=== PATIENT | female | born 1960 | race African-American/Black ===

== ENCOUNTER → 2016-10-13 | Outpatient (CLI) | payer MEDICARE, MEDICAID ==
[~2016-10-13] MED LIST: ASPI-1158 PO; ATOR20TA PO; CINA60 PO; SEVE800T PO; WARF7.5T22 PO
== END | disposition home or self-care (01) ==
LOC: MAMMO 11:11
PROVIDERS: ATTEND Specialist
DX: Z12.31 Encounter for screening mammogram for malignant neoplasm of breast (principal)
CPT/HCPCS: G0202

== ENCOUNTER 2018-01-02 08:17 | Emergency (ER) | payer MEDICARE, MEDICAID ==
[~2018-01-02] VITALS: Ht 177.8 cm; Wt 136.0 kg
[~2018-01-02 08:17] MED LIST changes: +REN800 PO; -SEVE800T PO
[2018-01-02] MEDS ORDERED: ONDANSETRON HCL 4MG/2ML INJ IV STA (10:29)
[2018-01-02] MEDS ORDERED: MAGNESIUM/ALUMINUM HYDROXIDE/SIMETHICONE 30ML UDC PO STA (10:29)
[2018-01-02] MEDS ORDERED: MORPHINE SULFATE 4 MG/ML CPJ (NOT FOR IM USE) IV STA (10:29)
[2018-01-02] MEDS ORDERED: FAMOTIDINE 20MG/2ML VIAL IV STA (10:29)
[2018-01-02 11:51] LABS: BASOPHILS % 0.8 % (0.0-2.0); EOSINOPHILS % 2.3 % (0.0-5.0); HEMATOCRIT. 34.8 % (36.0-48.0); HEMOGLOBIN. 11.6 g/dL (12.0-16.0); MEAN CORPUSCULAR HEMOGLOBIN 29.5 pg (28.0-32.0); MEAN CORPUSCULAR VOLUME 88.7 fL (81.0-99.0); MEAN PLATELET VOLUME 8.4 fl (7.4-10.4); MONOCYTES % 7.1 % (2.0-8.0); NEUTROPHILS % 69.8 % (40.0-76.0); PLATELET 205 x1000/uL (130-400); RED BLOOD CELL COUNT 3.92 mill/uL (4.2-5.4); RED CELL DISTRIBUTION WIDTH 15.2 % (11.6-14.6)
[2018-01-02 11:55] LABS: CHLORIDE 97 mEq/L (98-107)
[2018-01-02 12:00] LABS: ETHANOL BLOOD < 10 mg/dL
[2018-01-02 13:50] VITALS: BP 109/71
== END 2018-01-02 13:50 | disposition home or self-care (01) ==
LOC: ER 08:17 → EDBEDREQ 10:38 → CANBEDREQ 13:29 → ER 13:50
DX: N20.0 Calculus of kidney (principal); K57.30 Diverticulosis of large intestine without perforation or abscess without bleeding; Q61.3 Polycystic kidney, unspecified; E11.22 Type 2 diabetes mellitus with diabetic chronic kidney disease; N18.6 End stage renal disease; Z99.2 Dependence on renal dialysis; Z85.9 Personal history of malignant neoplasm, unspecified
CPT/HCPCS: 36415; 71045; 74176; 80053; 83690; 83880; 84484; 85025; 85610; 93005; 96374; 96375; 99285; G0482; J2270; J2405; J3490

== ENCOUNTER → 2018-06-15 | Outpatient (CLI) | payer MEDICARE, MEDICAID | END | disposition home or self-care (01) | LOC: RAD 12:01 | PROVIDERS: ATTEND Internal Medicine Nephrology | DX: Z12.2 Encounter for screening for malignant neoplasm of respiratory organs (principal); I51.7 Cardiomegaly | CPT/HCPCS: 71046 ==

== ENCOUNTER → 2019-02-26 | Day surgery (SDC) | payer MEDICARE, MEDICAID ==
[~2019-02-26] VITALS: Ht 177.8 cm; Wt 139.7 kg
[~2019-02-26] MED LIST changes: +CARV3.1242 MT; +CEFAZOLIN 1000MG PREMIX 100 ML IV ONE; +GENTAMICIN SULF 40MG/ML 2ML VIAL ONE; +GENTAMICIN/NS IRRIGATION 500 ML IR ONE; +GLIP5TAB12 MT; +IODIXANOL 320MG/ML 100 ML BOTTLE IV ONE; +LIDOCAINE HCL 1% 20ML VIAL (Pyxis) INJ ONE; +SACU1TAB PO
[2019-02-26 09:42] LABS: HEMATOCRIT 38.8 % (36.0-48.0); HEMOGLOBIN 12.6 g/dL (12.0-16.0); MEAN CORPUSCULAR HEMOGLOBIN 29.4 pg (28.0-32.0); MEAN CORPUSCULAR VOLUME 90.2 fL (81.0-99.0); PLATELET 154 x1000/uL (130-400); RED CELL DISTRIBUTION WIDTH 16.7 % (11.6-14.6)
[2019-02-26 10:04] LABS: PARTIAL THROMBOPLASTIN TIME 28.1 sec (23.4-31.0); PROTHROMBIN TIME 10.4 sec (9.6-11.0)
== END | disposition home or self-care (01) ==
LOC: CCL 08:28
PROVIDERS: ATTEND Internal Medicine Clinical Cardiac Electrophysiology
DX: I13.2 Hypertensive heart and chronic kidney disease with heart failure and with stage 5 chronic kidney disease, or end stage renal disease (principal); I50.22 Chronic systolic (congestive) heart failure; E11.22 Type 2 diabetes mellitus with diabetic chronic kidney disease; N18.6 End stage renal disease; I42.8 Other cardiomyopathies; Z79.899 Other long term (current) drug therapy; Z79.82 Long term (current) use of aspirin; Z87.891 Personal history of nicotine dependence; Z85.118 Personal history of other malignant neoplasm of bronchus and lung; Z72.89 Other problems related to lifestyle
CPT/HCPCS: 36415; 75820; 80048; 85027; 85610; 85730; 93005; C1769; C1887; C1893; J0330; J0690; J1100; J2250; J2370; J2704; J3010; J3490; Q9967; J1580

== ENCOUNTER → 2019-09-25 | Outpatient (CLI) | payer MEDICARE, MEDICAID ==
[~2019-09-25] MED LIST changes: -ATOR20TA PO; -CEFAZOLIN 1000MG PREMIX 100 ML IV ONE; -GENTAMICIN SULF 40MG/ML 2ML VIAL ONE; -GENTAMICIN/NS IRRIGATION 500 ML IR ONE; -IODIXANOL 320MG/ML 100 ML BOTTLE IV ONE; -LIDOCAINE HCL 1% 20ML VIAL (Pyxis) INJ ONE; +SEVE800T8 PO; -WARF7.5T22 PO
== END | disposition home or self-care (01) ==
LOC: LAB 15:34
PROVIDERS: ATTEND Internal Medicine Clinical Cardiac Electrophysiology
DX: Z03.818 Encounter for observation for suspected exposure to other biological agents ruled out (principal)
CPT/HCPCS: U0003-CS

== ENCOUNTER → 2019-09-27 | Outpatient (CLI) | payer MEDICARE, MEDICAID ==
[~2019-09-27] VITALS: Ht 177.8 cm; Wt 133.8 kg
[~2019-09-27] MED LIST changes: +LIDOCAINE HCL 1% 20ML VIAL (Pyxis) INJ ONE; +SODIUM BICARBONATE 4% (2.4MEQ) 5ML VIAL IV ONE
[2019-09-27 08:21] LABS: HEMATOCRIT 42.9 % (36.0-48.0); HEMOGLOBIN 13.9 g/dL (12.0-16.0); MEAN CORPUSCULAR HEMOGLOBIN 28.5 pg (28.0-32.0); MEAN CORPUSCULAR VOLUME 87.7 fL (81.0-99.0); PLATELET 160 x1000/uL (130-400); RED BLOOD CELL COUNT 4.89 mill/uL (4.2-5.4); RED CELL DISTRIBUTION WIDTH 16.3 % (11.6-14.6)
[2019-09-27 08:29] LABS: PARTIAL THROMBOPLASTIN TIME 28.6 sec (23.4-31.0); PROTHROMBIN TIME 10.9 sec (9.6-11.0)
== END | disposition home or self-care (01) ==
LOC: CCL 06:08 → RAD 07:10 → EDSTATUS 09-28 09:00
PROVIDERS: ATTEND Internal Medicine Clinical Cardiac Electrophysiology
DX: I50.22 Chronic systolic (congestive) heart failure (principal); I44.7 Left bundle-branch block, unspecified; I42.9 Cardiomyopathy, unspecified; Z79.82 Long term (current) use of aspirin; Z79.899 Other long term (current) drug therapy; Z98.890 Other specified postprocedural states; Z87.891 Personal history of nicotine dependence
CPT/HCPCS: 36415; 36573; 80048; 82962; 85027; 85610; 85730; 93005; C1725; C1751; J3490; 76937

== ENCOUNTER 2019-09-28 08:03 | Inpatient (IN) | payer MEDICARE, MEDICAID ==
[~2019-09-28] VITALS: Ht 177.8 cm; Wt 137.0 kg
[2019-09-28] VITALS (8 sets, daily range): BP systolic 83–132; BP diastolic 41–104
[~2019-09-28 08:03] MED LIST changes: -LIDOCAINE HCL 1% 20ML VIAL (Pyxis) INJ ONE; -SACU1TAB PO; -SEVE800T8 PO; -SODIUM BICARBONATE 4% (2.4MEQ) 5ML VIAL IV ONE
[2019-09-28] MEDS ORDERED: LIDOCAINE HCL 1% 20ML VIAL (Pyxis) INJ ONE (09:05)
[2019-09-28] MEDS ORDERED: IOHEXOL-300 100 ML BOTTLE ONE (09:06)
[2019-09-28] MEDS ORDERED: MIDAZOLAM HCL 2 MG/2 ML VIAL ONE (09:09)
[2019-09-28] MEDS ORDERED: PROPOFOL 200MG/20ML VIAL IV ONE ×2 (09:09→12:17)
[2019-09-28] MEDS ORDERED: FENTANYL CITRATE/PF 50MCG/ML 2ML VIAL ONE (09:09)
[2019-09-28] MEDS ORDERED: ONDANSETRON HCL 4MG/2ML INJ ONE (09:37)
[2019-09-28] MEDS ORDERED: GENTAMICIN/NS IRRIGATION 500 ML IR ONE (09:41)
[2019-09-28] MEDS ORDERED: EPHEDRINE SULFATE 50MG/ML VIAL ONE (11:45)
[2019-09-28] MEDS ORDERED: GENTAMICIN SULF 40MG/ML 2ML VIAL ONE (12:21)
[2019-09-28] MEDS ORDERED: FENTANYL CITRATE/PF 50MCG/ML 2ML VIAL IV PRN (13:15)
[2019-09-28] MEDS ORDERED: METOCLOPRAMIDE HCL 10MG/2ML VIAL IV PRN (13:15)
[2019-09-28] MEDS ORDERED: DIPHENHYDRAMINE 50MG/ML VIAL IV PRN (13:15)
[2019-09-28] MEDS: SEVELAMER CARBONATE 800 MG TABLET PO SCH (16:48)
[2019-09-28] MEDS: HYDROCODONE/ACETAMINOPHEN 5/325MG TABLET PO PRN (19:55)
[2019-09-28] MEDS: CARVEDILOL 3.125 MG TABLET PO SCH (21:00)
[2019-09-29 04:00] VITALS: BP 101/45
[2019-09-29 06:00] VITALS: BP 93/61
[2019-09-29 07:22] LABS: BASOPHILS % 0.6 % (0.0-2.0); EOSINOPHILS % 3.8 % (0.0-5.0); HEMATOCRIT. 42.3 % (36.0-48.0); HEMOGLOBIN. 13.7 g/dL (12.0-16.0); LYMPHOCYTES % 19.4 % (20.0-50.0); MEAN CORPUSCULAR HEMOGLOBIN 28.7 pg (28.0-32.0); MEAN CORPUSCULAR VOLUME 88.4 fL (81.0-99.0); MEAN PLATELET VOLUME 8.8 fl (7.4-10.4); MONOCYTES % 10.8 % (2.0-8.0); NEUTROPHILS % 65.4 % (40.0-76.0); PLATELET 133 x1000/uL (130-400); RED BLOOD CELL COUNT 4.78 mill/uL (4.2-5.4); RED CELL DISTRIBUTION WIDTH 16.4 % (11.6-14.6)
[2019-09-29 08:00] VITALS: BP 108/46
[2019-09-29] MEDS: SEVELAMER CARBONATE 800 MG TABLET PO SCH ×2 (08:12→12:20)
[2019-09-29] MEDS: CARVEDILOL 3.125 MG TABLET PO SCH (08:13)
[2019-09-29] MEDS ORDERED: ASPIRIN 81MG EC TABLET PO SCH (09:00)
[2019-09-29] MEDS ORDERED: GLIPIZIDE 5MG TABLET PO SCH (09:00)
[2019-09-29] MEDS ORDERED: CINACALCET HCL 90MG TABLET PO SCH (09:00)
[2019-09-29 10:00] VITALS: BP 143/99
[2019-09-29] MEDS: HYDROCODONE/ACETAMINOPHEN 5/325MG TABLET PO PRN (12:58)
[2019-09-29 14:00] VITALS: BP 138/72
[2019-09-29] MEDS ORDERED: ATORVASTATIN CALCIUM 10MG TABLET PO SCH (21:00)
== END 2019-09-29 15:16 | disposition home or self-care (01) | DRG 222 ==
LOC: CCL 08:03 → 3WST 08:04
PROVIDERS: ADMIT Internal Medicine Clinical Cardiac Electrophysiology; ATTEND Internal Medicine Clinical Cardiac Electrophysiology
PROC: 0JH609Z Insertion of Cardiac Resynchronization Defibrillator Pulse Generator into Chest Subcutaneous Tissue and Fascia, Open Approach (ICD-10-PCS; principal; 2019-09-28)
PROC: 02HK3KZ Insertion of Defibrillator Lead into Right Ventricle, Percutaneous Approach (ICD-10-PCS; 2019-09-28)
PROC: 4A023N6 Measurement of Cardiac Sampling and Pressure, Right Heart, Percutaneous Approach (ICD-10-PCS; 2019-09-28)
PROC: 02HL3KZ Insertion of Defibrillator Lead into Left Ventricle, Percutaneous Approach (ICD-10-PCS; 2019-09-28)
PROC: 02H63KZ Insertion of Defibrillator Lead into Right Atrium, Percutaneous Approach (ICD-10-PCS; 2019-09-28)
PROC: B5171ZZ Fluoroscopy of Left Subclavian Vein using Low Osmolar Contrast (ICD-10-PCS; 2019-09-28)
PROC: B2111ZZ Fluoroscopy of Multiple Coronary Arteries using Low Osmolar Contrast (ICD-10-PCS; 2019-09-28)
DX: I13.2 Hypertensive heart and chronic kidney disease with heart failure and with stage 5 chronic kidney disease, or end stage renal disease (principal); I50.23 Acute on chronic systolic (congestive) heart failure; N18.6 End stage renal disease; I49.01 Ventricular fibrillation; I42.0 Dilated cardiomyopathy; I44.7 Left bundle-branch block, unspecified; I25.10 Atherosclerotic heart disease of native coronary artery without angina pectoris; E78.5 Hyperlipidemia, unspecified; E11.22 Type 2 diabetes mellitus with diabetic chronic kidney disease; I27.29 Other secondary pulmonary hypertension; Z86.718 Personal history of other venous thrombosis and embolism; Z85.118 Personal history of other malignant neoplasm of bronchus and lung; Z99.2 Dependence on renal dialysis
CPT/HCPCS: 33225; 33249; 36415; 71045; 75820; 80048; 82962; 83735; 85025; 93005; 93451; 93641; C1769; C1887; C1892; C1893; C1898; C1899; C1900; J1580; J1644; J2250; J2405; J2704; J2765; J3010; J3490; Q9967; U0003-CS

== ENCOUNTER → 2020-07-31 | Outpatient (CLI) | payer MEDICARE, MEDICAID ==
[~2020-07-31] MED LIST changes: -ASPI-1158 PO; +ASPI-1406 PO
== END | disposition home or self-care (01) ==
LOC: LAB 06:42
PROVIDERS: ATTEND Specialist
DX: Z01.812 Encounter for preprocedural laboratory examination (principal); R05 Cough; Z20.822 Contact with and (suspected) exposure to COVID-19
CPT/HCPCS: 87426

== ENCOUNTER → 2021-01-21 | Outpatient (CLI) | payer MEDICARE ==
[~2021-01-21] MED LIST changes: +APIX5TAB MT; +CLOP-31 MT; +SEVE800T8 MT
== END | disposition home or self-care (01) ==
LOC: LAB 10:09
PROVIDERS: ATTEND Specialist
DX: Z20.822 Contact with and (suspected) exposure to COVID-19 (principal)
CPT/HCPCS: C9803; U0003; U0005